=== PATIENT | male | born 1995 | race Two or more races ===

== ENCOUNTER 2018-05-01 14:52 | Outpatient (CLI) | payer OTHER | END 2018-05-01 23:59 | disposition home or self-care (01) | LOC: RAD 14:52 | DX: Z11.1 Encounter for screening for respiratory tuberculosis (principal); R76.11 Nonspecific reaction to tuberculin skin test without active tuberculosis; Z91.012 Allergy to eggs | CPT/HCPCS: 71046 ==

== ENCOUNTER 2018-05-17 11:59 | Outpatient (CLI) | payer OTHER ==
[2018-05-17 12:28] LABS: BASOPHILS % (AUTO) 0.4 % (0-1); EOSINOPHILS # (AUTO) 0.2 X10'3 (0-0.9); HEMATOCRIT 48.5 % (42.0-52.0); HEMOGLOBIN 16.2 g/dl (14.0-17.9); LYMPHOCYTES # (AUTO) 2.1 X10'3 (1.1-4.8); LYMPHOCYTES % (AUTO) 29.8 % (21-51); MEAN CORPUSCULAR HEMOGLOBIN 30.6 PG (27.0-31.0); MEAN CORPUSCULAR HGB CONC 33.4 % (33.0-36.5); MEAN CORPUSCULAR VOLUME 91.6 FL (78-98); MEAN PLATELET VOLUME 7.3 FL (7.4-10.4); MONOCYTES # (AUTO) 0.5 X10'3 (0-0.9); MONOCYTES % (AUTO) 7.4 % (2-12); NEUTROPHILS # (AUTO) 4.2 X10'3 (1.8-7.7); NEUTROPHILS % (AUTO) 59.4 % (42-75); PLATELET COUNT 375 X10'3 (140-440); RED CELL DISTRIBUTION WIDTH 13.2 % (11.5-14.5); WHITE BLOOD COUNT 7.1 X10'3 (4.5-11.0)
[2018-05-17 12:42] LABS: ALANINE AMINOTRANSFERASE 85 U/L (12-78); ALBUMIN 4.4 G/DL (3.4-5.0); ALBUMIN/GLOBULIN RATIO 1.4 (1.1-1.5); ALKALINE PHOSPHATASE 105 IU/L (46-116); ANION GAP 6 (8-16); ASPARTATE AMINO TRANSFERASE 22 U/L (10-37); BILIRUBIN,TOTAL 0.6 MG/DL (0.1-1.0); BLOOD UREA NITROGEN 12 MG/DL (7-18); BUN/CREATININE RATIO 12.5 (5.4-32.0); CALCIUM 9.1 MG/DL (8.5-10.1); CHLORIDE 102 MMOL/L (99-107); CHOL/HDL RATIO 9.3 (0.00-4.99); CHOLESTEROL 167 MG/DL (0-200); CREATININE 0.96 MG/DL (0.60-1.10); GLUCOSE 98 MG/DL (70-104); HDL CHOLESTEROL 18 MG/DL (35-60); LDL CHOLESTEROL 131 MG/DL (50-100); POTASSIUM 4.2 MMOL/L (3.5-5.1); SODIUM 139 MMOL/L (135-145); TOTAL CARBON DIOXIDE 31.1 MMOL/L (24-32); TOTAL PROTEIN 7.5 G/DL (6.4-8.2); TRIGLYCERIDES 121 MG/DL (20-135); eGFR > 90 ML/MIN
== END 2018-05-17 23:59 | disposition home or self-care (01) ==
LOC: LAB 11:59
PROVIDERS: ATTEND Family Medicine
DX: R76.11 Nonspecific reaction to tuberculin skin test without active tuberculosis (principal)
CPT/HCPCS: 36415; 80053; 80061; 85025

== ENCOUNTER 2018-06-25 11:19 | Outpatient (CLI) | payer OTHER | END 2018-06-25 23:59 | disposition home or self-care (01) | LOC: LAB 11:19 | PROVIDERS: ATTEND Family Medicine | DX: Z00.00 Encounter for general adult medical examination without abnormal findings (principal); R76.11 Nonspecific reaction to tuberculin skin test without active tuberculosis | CPT/HCPCS: 36415 ==

== ENCOUNTER 2018-06-25 11:22 | Outpatient (CLI) | payer OTHER ==
[2018-06-25 12:28] LABS: ALANINE AMINOTRANSFERASE 69 U/L (12-78); ALBUMIN 4.2 G/DL (3.4-5.0); ALBUMIN/GLOBULIN RATIO 1.3 (1.1-1.5); ALKALINE PHOSPHATASE 97 IU/L (46-116); ANION GAP 10 (8-16); ASPARTATE AMINO TRANSFERASE 23 U/L (10-37); BILIRUBIN,TOTAL 0.4 MG/DL (0.1-1.0); BLOOD UREA NITROGEN 10 MG/DL (7-18); BUN/CREATININE RATIO 12.2 (5.4-32.0); CALCIUM 8.5 MG/DL (8.5-10.1); CHLORIDE 102 MMOL/L (99-107); CREATININE 0.82 MG/DL (0.60-1.10); GLUCOSE 104 MG/DL (70-104); SODIUM 141 MMOL/L (135-145); TOTAL CARBON DIOXIDE 28.7 MMOL/L (24-32); TOTAL PROTEIN 7.4 G/DL (6.4-8.2); eGFR > 90 ML/MIN
[2018-06-25 13:17] LABS: HIV ANTIBODY 1&2 RAPID NON-REACTIVE (Neg)
[2018-06-27 08:42] LABS: GAMMA GLUTAMLY TRANSPEPTIDASE 22 IU/L (0-65); HBSAG SCREEN Negative (Negative); HEP A AB, IGM Negative (Negative); HEP B CORE AB, IGM Negative (Negative); HEPATITIS C ANTIBODY <0.1 s/co ratio (0.0-0.9)
== END 2018-06-25 23:59 | disposition home or self-care (01) ==
LOC: LAB 11:22
PROVIDERS: ATTEND Family Medicine
DX: R94.5 Abnormal results of liver function studies (principal); R76.11 Nonspecific reaction to tuberculin skin test without active tuberculosis; Z87.891 Personal history of nicotine dependence; Z91.012 Allergy to eggs
CPT/HCPCS: 36415; 80053; 80074; 82977; 86703

== ENCOUNTER 2018-10-17 05:26 | Emergency (ER) | payer OTHER ==
[~2018-10-17] VITALS: Ht 175.3 cm; Wt 95.0 kg
[2018-10-17 06:53] VITALS: BP 135/74
== END 2018-10-17 07:36 | disposition home or self-care (01) ==
LOC: ER 05:27
DX: R00.2 Palpitations (principal); R07.89 Other chest pain; Z91.012 Allergy to eggs
CPT/HCPCS: 36415; 71045; 84439; 84443; 84484; 93005; 99284

== ENCOUNTER 2019-02-13 15:28 | Outpatient (CLI) | payer OTHER | END 2019-02-13 23:59 | disposition home or self-care (01) | LOC: CARD DIAG 15:28 | PROVIDERS: ATTEND Internal Medicine Cardiovascular Disease | DX: I08.0 Rheumatic disorders of both mitral and aortic valves (principal) | CPT/HCPCS: 93306 ==

== ENCOUNTER 2019-09-24 12:09 | Emergency (ER) | payer OTHER ==
[~2019-09-24] VITALS: Ht 172.7 cm; Wt 90.9 kg
[2019-09-24 12:11] VITALS: BP 141/87
--- NOTE | 2019-09-27 12:41 | NUR ---
Still c/o small constant cough, slight SOB, slight tickle in throat, no fever, body aches, runny nose. Admits to itchy watery eyes. COVID swab completed can not be run. He will return for retest.
== END 2019-09-24 14:01 | disposition home or self-care (01) ==
LOC: ER 12:10
DX: B34.9 Viral infection, unspecified (principal); Z20.828 Contact with and (suspected) exposure to other viral communicable diseases; J98.8 Other specified respiratory disorders; Z91.012 Allergy to eggs
CPT/HCPCS: 36415; 87635; 99281

== ENCOUNTER 2019-09-27 13:55 | Emergency (ER) | payer OTHER ==
[~2019-09-27] VITALS: Ht 175.3 cm; Wt 90.9 kg
[2019-09-27 14:04] VITALS: BP 141/81
== END 2019-09-27 14:15 | disposition home or self-care (01) ==
LOC: ER 13:56
DX: B34.9 Viral infection, unspecified (principal); Z20.828 Contact with and (suspected) exposure to other viral communicable diseases; R05 Cough; R06.02 Shortness of breath; R07.89 Other chest pain; J02.9 Acute pharyngitis, unspecified; R09.89 Other specified symptoms and signs involving the circulatory and respiratory systems; Z91.012 Allergy to eggs
CPT/HCPCS: 36415; 87635; 99283